=== PATIENT | male | born 1940 | race Caucasian/White ===

== ENCOUNTER 2018-05-30 07:00 | Inpatient (IN) | payer OTHER ==
[~2018-05-30] VITALS: Ht 182.9 cm; Wt 96.5 kg
[2018-05-30 07:47] LABS: Basophils # (auto) 0 uL; Basophils % (auto) 0.5 % (0.0-2.0); Eosinophils # (auto) 0 uL; Hematocrit 31.5 % (41.0-53.0); Hemoglobin 10.7 g/dL (13.5-17.5); Monocytes # (auto) 0.7 uL; Neutrophils # (auto) 7.8 uL
[2018-05-30 07:48] LABS: Eosinophils % (auto) 0.3 % (0.0-7.0); Lymphocytes # (auto) 0.9 uL; Lymphocytes % (auto) 9.1 % (10.0-50.0); Mean Corpuscular Hemoglobin 35.9 pg (28.0-32.0); Mean Corpuscular Hgb Conc. 34.1 g/dL (32.0-36.0); Mean Corpuscular Volume 105.4 fL (80.0-100.0); Neutrophils % (auto) 83.1 % (37.0-80.0); Platelet Count (auto) 144 10^3/uL (140-450); Red Blood Cells 2.99 10^6/uL (4.5-5.90); Red Cell Distribution Width 13.8 % (11.8-14.3); White Blood Cell 9.4 10^3/uL (4.4-10.8)
[2018-05-30 08:00] LABS: INR 1.15 (0.9-1.15); Partial Thromboplastin Time 26.4 sec (23.78-33.04); Prothrombin Time 12.2 sec (9.27-12.13)
[2018-05-30 08:18] LABS: Albumin 3.6 g/dL (3.4-5.0); Bilirubin, Total 0.6 mg/dL (0.2-1.0); Calcium 8.4 mg/dL (8.5-10.1); Magnesium 2.4 mg/dL (1.6-2.6); Potassium 4.1 mmol/L (3.5-5.1); Total Protein 7.7 g/dL (6.4-8.2)
[2018-05-30] MEDS ORDERED: ASPirin 81 mg TAB PO ONE (09:15)
[2018-05-30] MEDS ORDERED: ONDANSETRON HCL 4 MG/2 ML VIAL IV ONE (09:30)
[2018-05-30] MEDS ORDERED: MORPHINE SULFATE 4 MG/ML SYR/VIAL IV ONE (09:30)
[2018-05-30] MEDS ORDERED: LACTULOSE 20Gm/30ML SOLN PO PRN (10:00)
[2018-05-30] MEDS ORDERED: DEXTROSE (50%) 50ML SYRG IV PRN (10:00)
[2018-05-30] MEDS ORDERED: LABETALOL HCL 5 MG/ML ML 20ML VIAL IV PRN (10:00)
[2018-05-30] MEDS ORDERED: LORazepam 0.5 MG TAB PO PRN (10:00)
[2018-05-30] MEDS ORDERED: NITROGLYCERIN 0.4 MG SL TAB SL PRN (10:00)
[2018-05-30] MEDS ORDERED: PROMETHAZINE HCL 25 MG/ML 1ML IV PRN (10:00)
[2018-05-30] MEDS ORDERED: MORPHINE SULFATE 4 MG/ML SYR/VIAL IV PRN (10:00)
[2018-05-30] MEDS ORDERED: ACETAMINOPHEN 500 MG TAB PO PRN (10:00)
[2018-05-30] MEDS ORDERED: TEMAZEPAM 15 MG CAP PO PRN (10:00)
[2018-05-30] MEDS: PANTOPRAZOLE 40 MG TAB PO SCH (10:51)
[2018-05-30] MEDS: ENOXAPARIN SOD 30 MG/0.3 ML SYRINGE SC SCH (10:52)
[2018-05-30] MEDS: ASPirin 81 mg TAB PO SCH (10:52)
[2018-05-30] MEDS: InsuLIN REG 1unit/0.01ml Soln (100units/ml) SC SCH ×3 (11:23→21:05)
[2018-05-30] MEDS: ACCU-CHEK COMFORT CURVE STRIP VI SCH ×3 (11:23→21:04)
[2018-05-30 11:43] LABS: Folate (Folic Acid) 10.18 ng/mL (5.38-24)
[2018-05-30 13:00] VITALS: BP 122/61
[2018-05-30] MEDS: HYDROcodone-ACET 5/325MG TAB PO PRN (13:32)
[2018-05-30 13:39] VITALS: BP 122/61
[2018-05-30] MEDS ORDERED: CLOPIDOGREL BISULFATE 75 MG TAB PO ONE (15:30)
[2018-05-30 17:00] VITALS: BP 136/69
[2018-05-30 17:51] LABS: Cholesterol 131 mg/dL (< 200); HDL Cholesterol 27 mg/dL (40-59); LDL Cholesterol 94 mg/dL (< 100); Triglycerides 149 mg/dL (< 150)
[2018-05-30] MEDS: MORPHINE SULFATE 4 MG/ML SYR/VIAL IV PRN (19:39)
[2018-05-30] MEDS ORDERED: FURO40TA4 PO (19:47)
[2018-05-30] MEDS ORDERED: GABA300C10 PO (19:47)
[2018-05-30] MEDS ORDERED: DIA5T PO (19:47)
[2018-05-30] MEDS ORDERED: CARV3.1240 PO (19:47)
[2018-05-30] MEDS ORDERED: CALC667C5 PO (19:49)
[2018-05-30 22:00] VITALS: BP 144/71
[2018-05-30] MEDS ORDERED: ATORVASTATIN 20 MG TAB PO SCH (22:00)
[2018-05-31] MEDS: MORPHINE SULFATE 4 MG/ML SYR/VIAL IV PRN ×3 (04:36→10:48)
[2018-05-31 05:00] VITALS: BP 156/76
[2018-05-31] MEDS: InsuLIN REG 1unit/0.01ml Soln (100units/ml) SC SCH ×2 (05:31→11:30)
[2018-05-31] MEDS: ACCU-CHEK COMFORT CURVE STRIP VI SCH ×2 (05:31→12:18)
[2018-05-31] MEDS: HYDROcodone-ACET 5/325MG TAB PO PRN ×2 (07:28→15:37)
[2018-05-31 08:00] VITALS: BP 134/67
[2018-05-31 09:00] VITALS: BP 134/67
[2018-05-31] MEDS ORDERED: CLOPIDOGREL BISULFATE 75 MG TAB PO SCH (10:00)
[2018-05-31] MEDS: PANTOPRAZOLE 40 MG TAB PO SCH (10:48)
[2018-05-31] MEDS: ASPirin 81 mg TAB PO SCH (10:48)
[2018-05-31] MEDS: ENOXAPARIN SOD 30 MG/0.3 ML SYRINGE SC SCH (10:49)
[2018-05-31 12:41] VITALS: BP 134/67
[2018-05-31 13:00] VITALS: BP 135/67
== END 2018-05-31 16:00 | disposition short-term general hospital (02) | DRG 64 ==
LOC: EDBD 07:00 → ER 07:00 → TELE 07:01 → TELE-EAST 12:39
PROVIDERS: ADMIT Internal Medicine; ATTEND Internal Medicine
DX: I63.9 Cerebral infarction, unspecified (principal); N18.6 End stage renal disease; S42.302A Unspecified fracture of shaft of humerus, left arm, initial encounter for closed fracture; I12.0 Hypertensive chronic kidney disease with stage 5 chronic kidney disease or end stage renal disease; H81.10 Benign paroxysmal vertigo, unspecified ear; I25.10 Atherosclerotic heart disease of native coronary artery without angina pectoris; M19.90 Unspecified osteoarthritis, unspecified site; W18.39XA Other fall on same level, initial encounter; E11.22 Type 2 diabetes mellitus with diabetic chronic kidney disease; E66.3 Overweight; Y93.89 Activity, other specified; Y92.098 Other place in other non-institutional residence as the place of occurrence of the external cause; Y99.8 Other external cause status; I25.2 Old myocardial infarction; Z79.899 Other long term (current) drug therapy; Z82.3 Family history of stroke; Z82.49 Family history of ischemic heart disease and other diseases of the circulatory system; Z86.73 Personal history of transient ischemic attack (TIA), and cerebral infarction without residual deficits; Z95.1 Presence of aortocoronary bypass graft; Z95.5 Presence of coronary angioplasty implant and graft; Z90.5 Acquired absence of kidney; Z99.2 Dependence on renal dialysis; Z68.28 Body mass index [BMI] 28.0-28.9, adult; Z88.2 Allergy status to sulfonamides
CPT/HCPCS: 36415; 70450; 71045; 73030; 73502; 80053; 80061; 82550; 82607; 82746; 82962; 83036; 83735; 84443; 84484; 85025; 85610; 85652; 85730; 93005; 93306; 93886; 95819; 96374; 96375; 97163; J1815; J2405